=== PATIENT | female | born 1985 | race Caucasian/White ===

== ENCOUNTER 2017-08-28 19:57 | Emergency (ER) | payer OTHER ==
[~2017-08-28] VITALS: Ht 165.1 cm; Wt 61.2 kg
[2017-08-28] MEDS ORDERED: SYNTHROID50 MCG PO (20:01)
== END 2017-08-28 23:37 | disposition home or self-care (01) ==
LOC: ER 19:57
DX: O03.9 Complete or unspecified spontaneous abortion without complication (principal)

== ENCOUNTER 2021-02-13 09:26 | Outpatient (CLI) | payer OTHER ==
[~2021-02-13 09:26] MED LIST: SYNTHROID50 MCG PO
== END 2021-02-13 11:14 | disposition home or self-care (01) ==
LOC: PRENATAL 09:26
PROVIDERS: ATTEND Obstetrics & Gynecology Maternal & Fetal Medicine
DX: O35.0XX1 Maternal care for (suspected) central nervous system malformation in fetus, fetus 1 (principal); O35.3XX1 Maternal care for (suspected) damage to fetus from viral disease in mother, fetus 1; O98.512 Other viral diseases complicating pregnancy, second trimester; Z36.89 Encounter for other specified antenatal screening; Z3A.23 23 weeks gestation of pregnancy

== ENCOUNTER 2021-04-26 08:04 | Outpatient (CLI) | payer OTHER | END 2021-04-26 10:30 | disposition home or self-care (01) | LOC: PRENATAL 08:04 | PROVIDERS: ATTEND Obstetrics & Gynecology Maternal & Fetal Medicine | DX: O26.843 Uterine size-date discrepancy, third trimester (principal); O35.0XX1 Maternal care for (suspected) central nervous system malformation in fetus, fetus 1; Z36.89 Encounter for other specified antenatal screening; Z3A.35 35 weeks gestation of pregnancy ==

== ENCOUNTER 2021-05-15 10:30 | Outpatient (CLI) | payer OTHER | END 2021-05-15 11:33 | disposition home or self-care (01) | LOC: NST 10:30 | PROVIDERS: ATTEND Student in an Organized Health Care Education/Training Program | DX: Z34.03 Encounter for supervision of normal first pregnancy, third trimester (principal) ==

== ENCOUNTER 2021-05-23 08:47 | Outpatient (CLI) | payer OTHER | END 2021-05-23 10:02 | disposition home or self-care (01) | LOC: PRENATAL 08:47 | PROVIDERS: ATTEND Obstetrics & Gynecology Maternal & Fetal Medicine | DX: O26.843 Uterine size-date discrepancy, third trimester (principal); O36.8131 Decreased fetal movements, third trimester, fetus 1; O35.0XX1 Maternal care for (suspected) central nervous system malformation in fetus, fetus 1; O24.410 Gestational diabetes mellitus in pregnancy, diet controlled; Z36.89 Encounter for other specified antenatal screening; Z3A.36 36 weeks gestation of pregnancy ==

== ENCOUNTER 2021-05-29 06:18 | Inpatient (IN) | payer OTHER ==
[~2021-05-29] VITALS: Ht 165.1 cm; Wt 4.1 kg
[2021-05-29] MEDS ORDERED: SYNTHROID88 MCG PO (06:58)
[2021-05-29] MEDS ORDERED: ECOTRIN81 MG PO (06:59)
[2021-05-29] MEDS ORDERED: PRENATAL CAPLE1 EAC1 PO (07:02)
[2021-05-29] MEDS ORDERED: HUMULIN N100 UNIT/2 IJ (07:06)
[2021-05-30] MEDS ORDERED: METFORMIN HCL500 M4 (09:44)
== END 2021-06-02 11:56 | disposition home or self-care (01) | DRG 788 ==
LOC: LDR 06:18 → OB/GYN 13:04 → SURG-SUITE 05-30 20:39 → OB/GYN 06-18 12:14
PROVIDERS: ADMIT Student in an Organized Health Care Education/Training Program; ATTEND Student in an Organized Health Care Education/Training Program
PROC: 3E0P7VZ Introduction of Hormone into Female Reproductive, Via Natural or Artificial Opening (ICD-10-PCS; 2021-05-29)
PROC: 4A1HXFZ Monitoring of Products of Conception, Cardiac Rhythm, External Approach (ICD-10-PCS; 2021-05-29)
PROC: 10D00Z1 Extraction of Products of Conception, Low, Open Approach (ICD-10-PCS; principal; 2021-05-30 18:30)
DX: O62.1 Secondary uterine inertia (principal); O61.0 Failed medical induction of labor; O33.5XX0 Maternal care for disproportion due to unusually large fetus, not applicable or unspecified; O24.424 Gestational diabetes mellitus in childbirth, insulin controlled; Z3A.37 37 weeks gestation of pregnancy; Z37.0 Single live birth

== ENCOUNTER 2022-08-02 10:33 | Outpatient (CLI) | payer OTHER ==
[~2022-08-02 10:33] MED LIST changes: +ECOTRIN81 MG PO; +HUMULIN N100 UNIT/2 IJ; +METFORMIN HCL500 M4; +PRENATAL CAPLE1 EAC1 PO; +SYNTHROID88 MCG PO
== END 2022-08-02 11:55 | disposition home or self-care (01) ==
LOC: PRENATAL 10:33
PROVIDERS: ATTEND Obstetrics & Gynecology Maternal & Fetal Medicine
DX: O36.80X0 Pregnancy with inconclusive fetal viability, not applicable or unspecified (principal); Z3A.11 11 weeks gestation of pregnancy

== ENCOUNTER 2022-08-18 10:32 | Emergency (ER) | payer OTHER ==
[~2022-08-18] VITALS: Ht 165.1 cm; Wt 72.6 kg
== END 2022-08-18 13:55 ==
LOC: ER 10:32
DX: R42 Dizziness and giddiness (principal)

== ENCOUNTER 2022-10-04 09:20 | Outpatient (CLI) | payer OTHER | END 2022-10-04 11:00 | disposition home or self-care (01) | LOC: PRENATAL 09:20 | PROVIDERS: ATTEND Obstetrics & Gynecology Maternal & Fetal Medicine | DX: O35.9XX0 Maternal care for (suspected) fetal abnormality and damage, unspecified, not applicable or unspecified (principal); O35.3XX0 Maternal care for (suspected) damage to fetus from viral disease in mother, not applicable or unspecified; O24.419 Gestational diabetes mellitus in pregnancy, unspecified control; O34.219 Maternal care for unspecified type scar from previous cesarean delivery; O09.529 Supervision of elderly multigravida, unspecified trimester; Z3A.20 20 weeks gestation of pregnancy ==

== ENCOUNTER 2022-11-30 11:03 | Outpatient (CLI) | payer OTHER | END 2022-11-30 11:43 | disposition home or self-care (01) | LOC: PRENATAL 11:03 | PROVIDERS: ATTEND Obstetrics & Gynecology Maternal & Fetal Medicine | DX: O26.849 Uterine size-date discrepancy, unspecified trimester (principal); O34.219 Maternal care for unspecified type scar from previous cesarean delivery; O24.419 Gestational diabetes mellitus in pregnancy, unspecified control; O09.529 Supervision of elderly multigravida, unspecified trimester; Z3A.28 28 weeks gestation of pregnancy ==

== ENCOUNTER 2022-12-27 09:15 | Outpatient (CLI) | payer OTHER | END 2022-12-27 17:22 | disposition home or self-care (01) | LOC: PRENATAL 09:15 | PROVIDERS: ATTEND Obstetrics & Gynecology Maternal & Fetal Medicine | DX: O26.849 Uterine size-date discrepancy, unspecified trimester (principal); O36.8199 Decreased fetal movements, unspecified trimester, other fetus; O09.529 Supervision of elderly multigravida, unspecified trimester; O24.419 Gestational diabetes mellitus in pregnancy, unspecified control; O34.219 Maternal care for unspecified type scar from previous cesarean delivery; Z3A.32 32 weeks gestation of pregnancy ==

== ENCOUNTER 2023-01-24 08:45 | Outpatient (CLI) | payer OTHER | END 2023-01-24 10:27 | disposition home or self-care (01) | LOC: PRENATAL 08:45 | PROVIDERS: ATTEND Obstetrics & Gynecology Maternal & Fetal Medicine | DX: O26.849 Uterine size-date discrepancy, unspecified trimester (principal); O36.8199 Decreased fetal movements, unspecified trimester, other fetus; O34.219 Maternal care for unspecified type scar from previous cesarean delivery; O09.529 Supervision of elderly multigravida, unspecified trimester; O24.419 Gestational diabetes mellitus in pregnancy, unspecified control; Z3A.36 36 weeks gestation of pregnancy ==

== ENCOUNTER 2023-01-25 13:57 | Inpatient (IN) | payer OTHER ==
[~2023-01-25] VITALS: Ht 165.1 cm; Wt 3.6 kg
[2023-01-25 13:50] LABS: HEMOGLOBIN 12.1 g/dL (12.0-15.00); MEAN CELL VOLUME 87.9 fL (80.00-100.00); MEAN CORPUSCULAR HEMOGLOBIN 30.5 pg (27.00-32.0); MEAN CORPUSCULAR HGB CONC 34.6 g/dl (32.0-36.0); PLATELET COUNT 216 K/uL (150-450); RED BLOOD COUNT 3.98 M/uL (4.00-6.00); RED CELL DISTRIBUTION WIDTH 13.2 % (11.5-14.5)
[2023-01-25 14:07] LABS: INR < 0.93; PARTIAL THROMBOPLASTIN TIME 22.1 SECONDS (22.0-34.0); PROTHROMBIN TIME 9.6 SECONDS (9.0-11.5)
[2023-01-25 14:24] LABS: ALBUMIN 2.6 gm/dL (3.4-5.0); BILIRUBIN TOTAL 0.32 mg/dL (0.3-1.2); CALCIUM 8.8 mg/dL (8.5-10.1); CREATININE SERUM 0.85 mg/dL (0.55-1.02); GFR 76.11; GLOBULINA 3.5 G/DL (2.4-3.5); POTASSIUM 4.03 mEq/L (3.5-5.1); TOTAL PROTEIN 6.1 gm/dL (6.4-8.2)
[2023-01-30] MEDS ORDERED: SYNTHROID75 MCG PO (06:29)
[2023-01-30 18:45] LABS: HEMATOCRIT 38.8 % (36.0-45.00); HEMOGLOBIN 13.3 g/dL (12.0-15.00); MEAN CELL VOLUME 87.5 fL (80.00-100.00); MEAN CORPUSCULAR HGB CONC 34.2 g/dl (32.0-36.0); PLATELET COUNT 212 K/uL (150-450); RED BLOOD COUNT 4.43 M/uL (4.00-6.00); RED CELL DISTRIBUTION WIDTH 12.8 % (11.5-14.5)
[2023-02-01] MEDS ORDERED: IBU800 MG PO (10:21)
[2023-02-01] MEDS ORDERED: COLACE100 MG PO (10:22)
[2023-02-01] MEDS ORDERED: SIMETHICONE125 M1 PO (10:22)
== END 2023-02-01 10:40 | disposition home or self-care (01) | DRG 785 ==
LOC: O/R 01-30 06:00 → OB/GYN 01-30 07:00
PROVIDERS: ADMIT Student in an Organized Health Care Education/Training Program; ATTEND Student in an Organized Health Care Education/Training Program
PROC: 0UB70ZZ Excision of Bilateral Fallopian Tubes, Open Approach (ICD-10-PCS; 2023-01-30)
PROC: 4A1HXCZ Monitoring of Products of Conception, Cardiac Rate, External Approach (ICD-10-PCS; 2023-01-30)
PROC: 10D00Z1 Extraction of Products of Conception, Low, Open Approach (ICD-10-PCS; principal; 2023-01-30 07:00)
DX: O34.211 Maternal care for low transverse scar from previous cesarean delivery (principal); O24.420 Gestational diabetes mellitus in childbirth, diet controlled; Z3A.37 37 weeks gestation of pregnancy; Z37.0 Single live birth; Z20.822 Contact with and (suspected) exposure to COVID-19; Z30.2 Encounter for sterilization